=== PATIENT | female | born 1995 | race Caucasian/White ===

== ENCOUNTER → 2016-11-26 | Outpatient (CLI) | payer OTHER ==
[~2016-11-26] MED LIST: IBUP200C PO; NO MEDS TAKEN; PREN1TAB17 PO
[2016-11-26 15:09] LABS: INR 0.88; PROTIME 11.9 Sec (12.2-14.2); PT RATIO 0.9
[2016-11-26 15:10] LABS: ALBUMIN 3.6 g/dl (3.3-4.9)
[2016-11-26 15:11] LABS: POTASSIUM 3.9 mmol/L (3.5-5.1)
[2016-11-26 15:12] LABS: BASOPHILS % 0.2 % (0.0-2.0); EOSINOPHILS # 0.1 10^3/ul (0.0-0.5); EOSINOPHILS % 0.6 % (0.0-7.0); HEMATOCRIT 37.9 % (37.0-47.0); LYMPHOCYTES # 2.1 10^3/ul (0.8-2.9); LYMPHOCYTES % 21.3 % (15.0-51.0); MEAN CORPUSCULAR HEMOGLOBIN 31.5 pg (29.0-33.0); MEAN CORPUSCULAR HGB CONC 34.3 g/dl (32.0-37.0); MEAN CORPUSCULAR VOLUME 91.9 fl (82.0-101.0); MEAN PLATELET VOLUME 9.7 fl (7.4-10.4); MONOCYTE # 0.4 10^3/ul (0.3-0.9); MONOCYTES % 4.2 % (0.0-11.0); NEUTROPHIL # 7.3 10^3/ul (1.6-7.5); NEUTROPHILS % 73.7 % (39.0-77.0); PLATELET COUNT 207 10^3/UL (140-440); RED BLOOD COUNT 4.12 10^6/ul (4.20-5.40); UNCORRECTED WBC 9.9 10^3/ul (4.8-10.8); WHITE BLOOD COUNT 9.9 10^3/ul (4.8-10.8)
[2016-11-26 15:13] LABS: ALBUMIN/GLOBULIN RATIO 1.05; BILIRUBIN,INDIRECT 0.1 mg/dl (0-1.1); BILIRUBIN,TOTAL 0.1 mg/dl (0.2-1.3); CONDITION 1; CREATININE 0.56 mg/dl (0.44-1.00)
[2016-11-26 15:14] LABS: CALCIUM 9.3 mg/dl (8.4-10.2)
[2016-11-26 15:15] LABS: ADD UMIC NO; URINE BILIRUBIN (Dip) NEGATIVE (NEGATIVE); URINE BLOOD (Dip) NEGATIVE (NEGATIVE); URINE COLOR LT. YELLOW (YELLOW); URINE GLUCOSE (Dip) NEGATIVE (NEGATIVE); URINE KETONES (Dip) NEGATIVE (NEGATIVE); URINE LEUKOCYTE ESTERASE (Dip) NEGATIVE (NEGATIVE); URINE NITRITE (Dip) NEGATIVE (NEGATIVE); URINE TOTAL PROTEIN (Dip) NEGATIVE (NEGATIVE); URINE UROBILINOGEN (Dip) 0.2 E.U./dL (0.1-1.0)
== END | disposition home or self-care (01) ==
LOC: LAB 14:33
PROVIDERS: ATTEND Specialist
DX: Z34.90 Encounter for supervision of normal pregnancy, unspecified, unspecified trimester (principal); Z3A.00 Weeks of gestation of pregnancy not specified
CPT/HCPCS: 80053; 81003; 85025; 85610; 85730; 86592; 86850; 86900; 86901

== ENCOUNTER 2016-12-01 05:23 | Inpatient (IN) | payer OTHER ==
--- NOTE | 2016-11-30 21:28 | PREOPHP ---
DATE OF ADMISSION: 12/01/2016 REASON FOR ADMISSION: She is to be admitted tomorrow 12/01/2016 for a repeat C- section at term. HISTORY OF PRESENT ILLNESS: This is a 21-year-old female, 3, para 2 with 2 previous sections whose EDC has been confirmed by early ultrasound to be 12/07/2016, admitted at 39 weeks' gestation for repeat section. The alternatives, benefits, risks and possible complications of this procedure were discussed with the patient at great length in the office. She was allowed to ask questions, and all her questions were answered to her satisfaction, and she signed the appropriate surgical informed consent. PAST MEDICAL HISTORY: The patient had 2 previous sections, the first in 10/2011 at this hospital, delivered a baby boy who weighed 8 poundswith a repeat section in 06/2013, another baby boy that weighed 8 pounds, also done at this hospital. She denies any cardiovascular problems, diabetes, renal disease, liver disease, neurological problems or thyroid disease. ALLERGIES: NO KNOWN ALLERGIES. MEDICATIONS: She has been taking vitamins only on a regular basis. FAMILY HISTORY: Noncontributory. REVIEW OF SYSTEMS: A 12-point review of systems is noncontributory. PHYSICAL EXAMINATION: GENERAL: Well-developed and nourished, in no distress. Alert and oriented x3 with a height 5 feet 4 inches and a weight of 200 pounds. VITAL SIGNS: Temperature 98, blood pressure 106/59, respirations 16 per minute. Pulse is 80 per minute, regular. HEENT: Within normal limits. Pupils are PERRLA. NECK: Supple. The thyroid is nonpalpable. There is no lymphadenopathy. BREASTS: No masses or lumps. LUNGS: Clear to percussion, auscultation. HEART: Normal sinus rhythm without a murmur. ABDOMEN: Soft. Enlarged uterus at about 36 cm above pubic bone, single baby, longitudinal lie, cephalic presentation. heart 140 per Doppler. PELVIC: Normal external genitalia. Cervix is closed, long and presenting part still high. Membranes are intact. EXTREMITIES: Within normal limits. NEUROLOGIC: Also normal. IMPRESSION: 1. Thirty-nine weeks' gestation. 2. Previous section x2. PLAN: The patient is to be delivered by repeat . Dictated By: RUBY PICKERING/NTS Conf#: [id number] DID#: [id number] CC: AMISH DOMINGUEZ MD;*EndCC* MTDD
[~2016-12-01] VITALS: Ht 162.6 cm; Wt 91.1 kg
[~2016-12-01 05:23] MED LIST changes: -IBUP200C PO
[2016-12-01] MEDS ORDERED: LACTATED RINGER'S 1,000 ML IV SCH (05:31)
[2016-12-01 05:39] VITALS: BP 117/63; PULSE 86; RESP 18
[2016-12-01] MEDS ORDERED: CEFAZOLIN 2 GM/50 ML (PMX) 50 ML IV SCH (06:00)
[2016-12-01] MEDS ORDERED: CARBOPROST 250 MCG INJ IM PRN ×2 (06:00→14:30)
[2016-12-01] MEDS ORDERED: MISOPROSTOL 200 MCG TAB PR PRN ×2 (06:00→14:30)
[2016-12-01] MEDS ORDERED: OXYTOCIN 30 UNITS/LR 500 ML IV PRN ×2 (06:00→14:30)
[2016-12-01] MEDS ORDERED: METHYLERGONOVINE 0.2 MG INJ IM PRN ×2 (06:00→14:30)
[2016-12-01 06:04] VITALS: Ht 162.6 cm; Wt 91.1 kg
[2016-12-01] MEDS ORDERED: OXYTOCIN 30 UNITS/LR 500 ML BAG IV ONE (07:00)
[2016-12-01 07:11] LABS: INR 0.91; PARTIAL THROMBOPLASTIN TIME 25.2 Sec (25.0-35.0); PROTIME 12.2 Sec (12.2-14.2)
[2016-12-01] MEDS ORDERED: ONDANSETRON 4 MG INJ IV STA (07:12)
[2016-12-01 07:13] LABS: BASOPHIL # 0.1 10^3/ul (0.0-0.1); BASOPHILS % 0.7 % (0.0-2.0); EOSINOPHILS # 0.1 10^3/ul (0.0-0.5); EOSINOPHILS % 0.8 % (0.0-7.0); HEMATOCRIT 37.1 % (37.0-47.0); HEMOGLOBIN 12.7 g/dl (12.0-16.0); LYMPHOCYTES # 2.9 10^3/ul (0.8-2.9); LYMPHOCYTES % 32.8 % (15.0-51.0); MEAN CORPUSCULAR HEMOGLOBIN 31.4 pg (29.0-33.0); MEAN CORPUSCULAR HGB CONC 34.3 g/dl (32.0-37.0); MEAN CORPUSCULAR VOLUME 91.6 fl (82.0-101.0); MEAN PLATELET VOLUME 9.8 fl (7.4-10.4); MONOCYTE # 0.6 10^3/ul (0.3-0.9); MONOCYTES % 6.2 % (0.0-11.0); NEUTROPHIL # 5.3 10^3/ul (1.6-7.5); NEUTROPHILS % 59.5 % (39.0-77.0); PLATELET COUNT 178 10^3/UL (140-440); RED BLOOD COUNT 4.05 10^6/ul (4.20-5.40); RED CELL DISTRIBUTION WIDTH 12.8 % (11.5-14.5); UNCORRECTED WBC 8.9 10^3/ul (4.8-10.8); WHITE BLOOD COUNT 8.9 10^3/ul (4.8-10.8)
[2016-12-01] MEDS ORDERED: LACTATED RINGER'S 1,000 ML IV ONE (07:20)
[2016-12-01 07:23] LABS: CONDITION 1
[2016-12-01] MEDS ORDERED: ZOLPIDEM 5 MG TAB PO PRN (07:30)
[2016-12-01] MEDS ORDERED: ONDANSETRON 4 MG INJ IV PRN ×2 (07:30)
[2016-12-01] MEDS ORDERED: ONDANSETRON 4 MG INJ IV ONE (07:30)
[2016-12-01] MEDS ORDERED: EPHEDrine SULFATE 50 MG/5 ML SYG IV PRN (07:30)
[2016-12-01] MEDS ORDERED: HYDROmorphONE (0.2 MG/ML) 10ML SYG IV PRN ×3 (07:30)
[2016-12-01] MEDS ORDERED: KETOROLAC 30 MG INJ IV ONE (07:30)
[2016-12-01] MEDS ORDERED: CITRIC ACID/NA CITRATE 30 ML CUP PO ONE ×2 (07:30)
[2016-12-01] MEDS ORDERED: DIPHENHYDRAMINE 50 MG INJ IV PRN ×2 (07:30)
[2016-12-01] MEDS ORDERED: NALOXONE (0.4 MG/ML) INJ IV PRN (07:30)
[2016-12-01] MEDS ORDERED: HYDROmorphONE 1 MG/ML SYG IV PRN ×2 (07:30)
[2016-12-01] MEDS ORDERED: morphine SULFATE/PF (10 MG/10 ML) INJ ONE (07:32)
[2016-12-01] MEDS ORDERED: MIDAZOLAM 1 MG/ML 2 ML INJ ONE (07:32)
[2016-12-01] MEDS ORDERED: FENTAnyl 50 MCG/ML VIAL ONE (07:32)
[2016-12-01] MEDS ORDERED: OXYTOCIN 10 UNIT INJ ONE (07:33)
[2016-12-01] MEDS: OXYTOCIN 30 UNITS/LR 500 ML IV SCH ×2 (09:50→13:39)
--- NOTE | 2016-12-01 13:47 | OPR ---
DATE OF OPERATION: PREOPERATIVE DIAGNOSIS: 39 weeks' gestation. POSTOPERATIVE DIAGNOSIS: 39 weeks' gestation. FINDINGS: Baby boy, Apgars scores of 8 and 9. OPERATION PERFORMED: Repeat low segment transverse section. SURGEON: Ruby Barnes MD HEALTH TECHNICIAN: Raghavendra Dominguez MD ANESTHESIOLOGIST: Dr. Stuart. ANESTHESIA: Spinal. ESTIMATED BLOOD LOSS: 600 mL. COMPLICATIONS: None. SPECIMENS: None. PROCEDURE AND FINDINGS: With the patient under spinal anesthesia, she was laid on the table in the dorsal recumbent position, tilted to the left side. Her abdomen, upper thighs and perineum were pre pped with ChloraPrep and after 3 minutes draped in the usual sterile fashion for this procedure. Pf annenstiel incision was done and carried through all layers of abdominal wall. There were no adhesi ons. The uterine segment was opened transversely high and a living male child was delivered from an LOP position. Baby boy was handed to the respiratory team educational technician who found him to have scor es of 8 at first minute and 9 at five minutes. Sample cord blood was obtained. Placenta was delive red. The uterine cavity was cleaned with a moist laparotomy pad. Incision of the uterus was closed with a continuous running stitch of 0 PDS in a double layer fashio n. Good hemostasis was obtained. Uterine tubes and ovaries were found to be normal. Incision in t he uterus was dry, good hemostasis was seen. The pelvis was thoroughly cleaned with a clean moist l aparotomy pads. Then, a piece of Interceed was left on the incision in the uterus to avoid future a dhesions. Then, the abdomen was closed in layers starting with the peritoneum with continuous runni ng stitch of 2-0 chromic catgut. The fascia was closed with continuous running stitch of 0 Vicryl. Finally, the edges of skin were brought together with subcuticular 4-0 Monocryl. Good hemostasis n oticed. Sterile pressure dressing was applied and the patient was taken to recovery room with all v ital signs stable. EBL was 600 mL of blood. Needle, sponge and instrument count at the end of the procedure was correct twice. Dictated By: RUBY PICKERING/BECCA Conf#: [id number] DID#: [id number] CC: RAGHAVENDRA DOMINGUEZ MD;*EndCC*
[2016-12-01 14:00] VITALS: BP 110/61; PULSE 64; RESP 18
[2016-12-01] MEDS: LACTATED RINGER'S 1,000 ML IV SCH ×2 (14:18→17:45)
[2016-12-01] MEDS ORDERED: LANOLIN 7 GM TUBE TOP PRN (14:30)
[2016-12-01] MEDS: CEFAZOLIN 2 GM/50 ML (PMX) 50 ML IV SCH ×2 (14:55→21:42)
[2016-12-01] MEDS: KETOROLAC 30 MG INJ IV PRN (17:45)
[2016-12-01 20:34] VITALS: BP 107/61; PULSE 71; RESP 18
[2016-12-02] VITALS: BP 109/69; PULSE 75; RESP 19
[2016-12-02] MEDS: LACTATED RINGER'S 1,000 ML IV SCH (02:07)
[2016-12-02] MEDS: KETOROLAC 30 MG INJ IV PRN (04:43)
[2016-12-02 04:53] VITALS: BP 98/52; PULSE 82; RESP 19
[2016-12-02] MEDS: CEFAZOLIN 2 GM/50 ML (PMX) 50 ML IV SCH (06:22)
[2016-12-02 07:40] VITALS: BP 103/60; PULSE 85; RESP 16
[2016-12-02 08:16] LABS: BASOPHILS % 0.5 % (0.0-2.0); EOSINOPHILS # 0.1 10^3/ul (0.0-0.5); EOSINOPHILS % 0.7 % (0.0-7.0); HEMATOCRIT 30.6 % (37.0-47.0); HEMOGLOBIN 10.6 g/dl (12.0-16.0); LYMPHOCYTES # 1.6 10^3/ul (0.8-2.9); LYMPHOCYTES % 19.5 % (15.0-51.0); MEAN CORPUSCULAR HEMOGLOBIN 32.1 pg (29.0-33.0); MEAN CORPUSCULAR HGB CONC 34.6 g/dl (32.0-37.0); MEAN CORPUSCULAR VOLUME 92.9 fl (82.0-101.0); MEAN PLATELET VOLUME 9.5 fl (7.4-10.4); MONOCYTE # 0.5 10^3/ul (0.3-0.9); MONOCYTES % 5.7 % (0.0-11.0); NEUTROPHIL # 6.1 10^3/ul (1.6-7.5); NEUTROPHILS % 73.6 % (39.0-77.0); PLATELET COUNT 160 10^3/UL (140-440); RED CELL DISTRIBUTION WIDTH 13.4 % (11.5-14.5); UNCORRECTED WBC 8.3 10^3/ul (4.8-10.8); WHITE BLOOD COUNT 8.3 10^3/ul (4.8-10.8)
[2016-12-02 08:22] LABS: CONDITION 1
[2016-12-02] MEDS: MULTIVIT/MIN/FOLATE/IRON/PREN TAB PO SCH (08:41)
[2016-12-02] MEDS: OXYCODONE/ACETAMINOPHEN (5/325) TAB PO PRN ×2 (10:52→16:59)
[2016-12-02] MEDS: IBUPROFEN 800 MG TAB PO SCH ×2 (14:24→21:42)
[2016-12-02] MEDS ORDERED: INFLUENZA VIRUS VACCINE 0.5 ML SYG IM* ONE (16:00)
[2016-12-02 16:30] VITALS: BP 109/60; PULSE 80; RESP 18
[2016-12-02 19:30] VITALS: BP 109/54; PULSE 86; RESP 86
[2016-12-03 04:40] VITALS: BP 122/74; PULSE 72; RESP 20
[2016-12-03] MEDS: OXYCODONE/ACETAMINOPHEN (5/325) TAB PO PRN (05:05)
[2016-12-03] MEDS: IBUPROFEN 800 MG TAB PO SCH ×3 (05:05→21:50)
[2016-12-03 08:00] VITALS: BP 130/68; PULSE 80; RESP 18
[2016-12-03] MEDS: MULTIVIT/MIN/FOLATE/IRON/PREN TAB PO SCH (09:11)
--- NOTE | 2016-12-03 09:32 | PN ---
Date/Time of Note Date/Time of Note DATE: 12/03/16 TIME: 09:31 OB Subjective Subjective Subjective Afebrile,doiong well.Showered today.Passes flatus. OB Objective Objective Objective Incision healing well.Nursing well. HEENT: WNL Heart: Rhythm Normal Lungs: Clear Abdomen: WNL Extremities: Normal Reflexes: Normal RUBY GUY MD Dec 03, 2016 09:32
[2016-12-03 16:00] VITALS: BP 115/71; RESP 18
[2016-12-03] MEDS ORDERED: MAGNESIUM HYDROXIDE 30ML CUP PO ONE (18:00)
[2016-12-03 19:35] VITALS: BP 105/72; PULSE 88; RESP 19
[2016-12-04] VITALS (8 sets, daily range): BP systolic 108–125; BP diastolic 67–70; PULSE 64–88; RESP 12–21
[2016-12-04] MEDS ORDERED: NITROGLYCERIN AEROSOL (4.9 GM) ONE
[2016-12-04] MEDS: OXYCODONE/ACETAMINOPHEN (5/325) TAB PO PRN (00:07)
[2016-12-04] MEDS ORDERED: morphine 10 MG INJ IM ONE (02:00)
--- NOTE | 2016-12-04 02:18 | RADRPT ---
PROCEDURE: XR Chest. CLINICAL INDICATION: Chest pain. on 12/01/2016, as per floor nurse. TECHNIQUE: Single frontal view of the chest was obtained COMPARISON: None FINDINGS: Small amount of air is suspected below the right hemidiaphragm, compatible with recent . I f there is concern for perforation of hollow viscus recommend CT correlation. The heart and mediastinum are within normal limits. The lungs are clear. There is no pleural effusion or pneumothorax. IMPRESSION: 1. Small amount of air is suspected below the right hemidiaphragm compatible with recent described by history provided by floor nurse. 2. Otherwise, no acute process in the chest. RPTAT: UU Physician Dank Date Time Electronically viewed and signed by Physician Dank on 12/04/2016 02:18 RS/
[2016-12-04] MEDS: IBUPROFEN 800 MG TAB PO SCH ×2 (07:27→16:09)
--- NOTE | 2016-12-04 08:17 | PN ---
Date/Time of Note Date/Time of Note DATE: 12/04/16 TIME: 08:14 OB Subjective Subjective Subjective Had an episode of chest pain radiating to the left shoulder and was transferred to Telemetry. No pain or SOB this morning. Had a BM yesterday. OB Objective Objective Objective Afebrile.Abdomen soft,incision healing well' HEENT: WNL Heart: Rhythm Normal Lungs: Clear Abdomen: WNL Extremities: Normal Reflexes: Normal RUBY GUY MD Dec 04, 2016 08:17
[2016-12-04] MEDS ORDERED: DIPHTH/TET/ACEL PERTUSS (ADULT) 0.5 ML VIAL IM* ONE (09:00)
--- NOTE | 2016-12-04 11:18 | RADRPT ---
Echocardiogram Report Patient Name: JOSÉ MIGUEL GUY Gender: Female Date: 1995 Study Date: 04-Dec-2016 Step Finisher: Diane Painting BIN Location: [facility] [place] Ref. Physician: TATY CR Quality: Good Procedures: Transthoracic echocardiogram with complete 2D, M-Mode, and doppler examination. Indications: Chest Pain. 2D/M Mode Doppler Measurement Value Normal Ranges Measurement Value Normal Ranges LVIDd 2D 5.0 3.5 - 5.6 cm AV Peak Hayden 1.5 m/sec LVIDs 2D 3.0 2.1 - 4.1 cm AV Peak PG 9.5 mmHg LVPWd 2D 0.9 0.6 - 1.1 cm LVOT Peak Hayden 1.4 m/sec IVSd 2D 1.1 0.6 - 1.1 cm LVOT Peak PG 8.4 mmHg AoR Diam 2D 2.1 2.0 - 3.7 cm MV E Peak Hayden 0.9 m/sec EDV 2D 116.3 cm3 MV A Peak Hayden 0.5 m/sec ESV 2D 28.2 cm3 MV E/A 1.9 LA Dimen 2D 3.8 2.3 - 4.0 cm MV Decel Time 183 msec MV Decel Greer 5 MV E/A 1.9 TR Peak Hayden 2.2 m/sec TR Peak PG 19.2 mmHg RVSP 22.0 mmHg Findings Left Ventricle: Normal left ventricular systolic function. Normal left ventricular cavity size. Normal left ventricular wall thickness. Ejection fraction is visually estimated at 65 %. Tissue Doppler/Mitral Doppler indices are within normal limits. Right Ventricle: Normal right ventricular size. Normal right ventricular systolic function. Left Atrium: The left atrium is normal in size. Right Atrium: The right atrium is normal in size. Mitral Valve: Normal appearance and function of the mitral valve with trace physiologic regurgitation. Aortic Valve: Normal appearance of the aortic valve. No significant aortic stenosis or insufficiency. Tricuspid Valve: Normal appearance and function of the tricuspid valve with trace physiologic regurgitation. Estimated peak PA systolic pressure 22 mmHg. Pericardium: Normal pericardium with no significant pericardial effusion. Aorta: Normal aortic root. IVC: Normal size and normal respiratory collapse consistent with normal right atrial pressure. Conclusions Normal left ventricular systolic function. Normal left ventricular cavity size. Normal left ventricular wall thickness. Ejection fraction is visually estimated at 65 %. Tissue Doppler/Mitral Doppler indices are within normal limits. Normal right ventricular size. Normal right ventricular systolic function. The left atrium is normal in size. The right atrium is normal in size. No significant valvular stenosis or regurgitation seen. Normal pericardium with no significant pericardial effusion. Electronically Signed By: Roel Underwood 04-Dec-2016 11:17:56 -0800 Patient Name: JOSÉ MIGUEL GUY Study Date: 04-Dec-[id number]
[2016-12-04] MEDS: MULTIVIT/MIN/FOLATE/IRON/PREN TAB PO SCH (11:32)
--- NOTE | 2016-12-04 12:32 | CONS ---
Date/Time of Note Date/Time of Note DATE: 12/04/16 TIME: 12:25 Assessment/Plan Assessment/Plan Additional Assessment/Plan Chest pain Preserved ejection fraction Status post -Patient with symptoms of chest discomfort with breast-feeding. No further episodes. 2 sets of cardiac enzymes are negative, echocardiogram within normal limits and ECG with no significant ischemic abnormalities. Would need additional set of cardiac enzymes. If remains negative, no further inpatient cardiac workup needed at the current time. Consultation Date/Type/Reason Admit Date/Time Dec 01, 2016 at 05:23 Type of Consultation: cv Reason for Consultation Chest pain Hx of Present Illness This is a 21-year-old female with no significant past medical history who underwent a section approximately 3-4 days ago. Yesterday, patient was breast pumping on the right side and breast-feeding on the left side. She developed epigastric and pain under her left breast which radiated up her mid sternum and to her left side of chest. Symptoms were occasionally sharp, occasionally heavy. There was intermittent shortness of breath. Symptoms resolved. She's had no further symptoms since then. She has breast pump on the left side since then with no further symptoms. Prior to this episode, she is an active woman. She has 2 younger children at home. She is able to climb stairs, walk briskly without any exertional chest pain, shortness of breath or dizziness. 12 point review of systems was performed with all pertinent positives and negatives mentioned above and all else is negative Past Medical History Medical History: no pertinent history Past Surgical History Family History Significant Family History: other (mother with SVT) Social History Alcohol Use: none Smoking Status: Never smoker Drug Use: none Exam/Review of Systems Vital Signs Vitals Vital Signs Date Time Temp Pulse Resp B/P Pulse Ox O2 Delivery O2 Flow Rate FiO2 12/04/16 12:07 64 12/04/16 07:53 98.2 12 108/70 97 Room Air 12/04/16 07:30 2.0 12/02/16 03:13 21 Exam No apparent distress Constitutional: alert, oriented, well developed Head: normocephalic Neck: supple Respiratory: clear to auscultation, normal air movement Cardiovascular: other (S1-S2 heard, no murmurs appreciated), regular rate and rhythm Gastrointestinal: bowel sounds, soft, tender (epigastric discomfort with palpation, no guarding) Musculoskeletal: other (discomfort with palpation under left breast) Extremities: other (trace nonpitting edema) Results Result Diagram: 12/02/16 0735 Results 24 hrs Laboratory Tests Test 12/04/16 01:50 12/04/16 06:25 Troponin I < 0.012 < 0.012 Medications Medications Current Medications Oxycodone/ Acetaminophen (Percocet (5/ 325)) 1 tab Q4H PRN PO PAIN LEVEL 4-6 Last administered on 12/03/16 05:05; Admin Dose 1 TAB; Start 12/01/16 at 14:30 Oxycodone/ Acetaminophen (Percocet (5/ 325)) 2 tab Q4H PRN PO PAIN LEVEL 7-10 Last administered on 12/04/16 00:07; Admin Dose 2 TAB; Start 12/01/16 at 14:30 Ibuprofen (Motrin) 800 mg Q8 PO Last administered on 12/04/16 07:27; Admin Dose 800 MG; Start 12/02/16 at 14:00 Simethicone 160 mg 160 mg Q8H PRN PO DISTENSION/GAS/BLOATING; Start 12/01/16 at 14:30 Oxytocin/Lactated Ringer's 500 ml @ 0 mls/hr ONCE PRN IV For Hemorrhage Management; Start 12/01/16 at 14:30 Methylergonovine Maleate (Methergine) 0.2 mg ONCE PRN IM VAGINAL BLEEDING; Start 12/01/16 at 14:30 Carboprost Tromethamine (Hemabate) 250 mcg ONCE PRN IM VAGINAL BLEEDING; Start 12/01/16 at 14:30 Misoprostol (Cytotec) 1,000 mcg ONCE PRN [place] VAGINAL BLEEDING; Start 12/01/16 at 14:30 Prenat Multivit/ Health Aid/Iron/Folic Ac ( S) 1 tab DAILY PO Last administered on 12/04/16 11:32; Admin Dose 1 TAB; Start 12/02/16 at 09:00 Procedures Procedures ECG demonstrates sinus rhythm, normal QRS duration, no significant ischemic STT wave abnormalities Roel Underwood DO Dec 04, 2016 12:32
--- NOTE | 2016-12-04 13:59 | RADRPT ---
Vent Rate: 75 bpm RR Interval: 0 msec [place] Interval: 134 msec QRS Duration: 80 msec QT Interval: 388 msec QTC Interval: 433 msec P-R-T [place]: 47 - -5 - 21 degrees Normal sinus rhythm with sinus arrhythmia Normal ECG Electronically Signed By: Roel Underwood [id number]
[2016-12-04] MEDS ORDERED: IBUP200C PO (15:40)
== END 2016-12-04 14:30 | disposition home or self-care (01) | DRG 766 ==
LOC: L-D 05:23 → PP1 14:09 → TEL 12-04 02:10
PROVIDERS: ADMIT Specialist; ATTEND Specialist
PROC: 10D00Z1 Extraction of Products of Conception, Low, Open Approach (ICD-10-PCS; principal; 2016-12-01 07:30)
DX: O34.211 Maternal care for low transverse scar from previous cesarean delivery (principal); E66.9 Obesity, unspecified; O99.214 Obesity complicating childbirth; R07.9 Chest pain, unspecified; Z68.34 Body mass index [BMI] 34.0-34.9, adult; Z3A.39 39 weeks gestation of pregnancy; Z37.0 Single live birth
CPT/HCPCS: 71010; 84484; 85025; 85610; 85730; 86592; 86850; 86870; 86885; 86900; 86901; 87340; 90686; 90715; 93005; 93306; 94760; 99464; J0690; J1200; J1885; J2250; J2270; J2274; J2405; J2590; J2790; J3010; J7120